=== PATIENT | female | born 1975 | race Caucasian/White ===

== ENCOUNTER 2022-08-15 07:43 | Outpatient (OUT) | payer OTHER, SELFPAY ==
--- NOTE | 2022-08-15 07:57 | ECG_ITS ---
[facility] Test Date: 2022-08-15 Pat Name: Anabel Garner Department: Room: - Gender: Female Panel Monitor: : 1975 Requested By: CHEYENNE WALDROP Order Number: [id number] Reading MD: EL MORALES Measurements Intervals [place] Rate: 64 P: 40 NC: 165 QRS: 16 QRSD: 87 T: 21 QT: 399 QTc: 412 Interpretive Statements SINUS RHYTHM Non-Specific T wave inversion in III LOW QRS VOLTAGE IN PRECORDIAL LEADS [QRS DEFLECTION < 1.0 mV IN CHEST LEADS] No previous ECG available for comparison Electronically Signed On 08-16-2022 6:35:29 EDT by EL MORALES
[2022-08-15 08:54] LABS: Basophils Percent Auto 0.7 % (0.2-2.0); Eosinophils Absolute Auto 0.3 10^3/uL (0.0-0.7); Eosinophils Percent Auto 4.9 % (0.9-7.0); Hematocrit 37.7 % (36.0-48.0); Hemoglobin 12.6 g/dL (12.0-16.0); Immature Granulocytes Abs Auto 0.02 10^3/uL (0.00-0.03); Immature Granulocytes Pct Auto 0.4 % (0.0-0.5); Lymphocytes Absolute Auto 1.8 10^3/uL (1.2-3.8); Lymphocytes Percent Auto 31.1 % (20.5-60.0); Mean Corpuscular HGB Conc 33.4 g/dL (29.9-35.2); Mean Corpuscular Hemoglobin 29.9 pg (26.7-34.0); Mean Corpuscular Volume 89.5 fL (81.0-99.0); Mean Platelet Volume 8.5 fL (9.5-13.5); Monocytes Absolute Auto 0.4 10^3/uL (0.3-0.8); Monocytes Percent Auto 7.6 % (1.7-12.0); Neutrophils Absolute Auto 3.1 10^3/uL (1.4-6.5); Neutrophils Percent Auto 55.3 % (43.0-75.0); Platelet Count 258 10^3/uL (150-450); Red Blood Count 4.21 10^6/uL (4.20-5.40); Red Cell Distribution Width 12.7 % (11.0-15.0); White Blood Count 5.7 10^3/uL (4.0-11.0)
--- NOTE | 2022-08-15 08:56 | PM.PRESUREVA ---
History of Present Illness History of Present Illness Chief complaint: Left kidney stone Narrative: Patient presents for preadmission testing. Please see HPI from Dr. Zambrano dated 07/25/2022. Review of Systems ROS Narrative Please see ROS from Dr. Zambrano dated 07/25/2022. [facility] Medical History (Updated 08/15/22 @ 08:36 by Stephanie Doyle NP) (02/2022) Surgical History (Updated 08/15/22 @ 08:36 by Stephanie Doyle NP) Family History (Updated 08/15/22 @ 08:36 by Stephanie Doyle NP) Other Family history of heart disease Family history of hypertension Family history of myocardial infarction Family history of stroke Social History (Updated 08/15/22 @ 08:29 by Stephanie Doyle NP) Within the past year, how often did you have a drink containing alcohol: monthly or less Smoking status: Former smoker Non-prescribed substance use: denies use Highest level of school completed/degree received: high school graduate Meds Home Medications and Allergies Home Medications Medication Instructions Recorded Confirmed Type citalopram 20 mg tablet 20 mg PO QDAY 08/15/22 08/15/22 History fluticasone propionate 50 2 spray intranasal QDAY PRN 08/15/22 08/15/22 History mcg/actuation nasal allergy symptoms spray,suspension omeprazole 40 mg capsule,delayed 40 mg PO QDAY 08/15/22 08/15/22 History release Allergies Allergy/AdvReac Type Severity Reaction Status Date / Time carbamazepine Allergy Unknown Verified 08/15/22 08:26 cephalexin [From Keflex] Allergy Hives Verified 08/15/22 08:26 ketorolac Allergy Hives Verified 08/15/22 08:26 metoclopramide Allergy Hives Verified 08/15/22 08:26 Exam Narrative Exam Narrative: Constitutional: Awake, alert, comfortable, well-appearing, nontoxic, interactive, vital signs as charted Head: Normocephalic, atraumatic Neck: Supple, normal appearance, normal range of motion, no meningeal signs, no lymphadenopathy Respiratory: No respiratory distress, breath sounds clear Cardiovascular: Regular rate and rhythm, strong and regular heart tones Abdomen: Nontender, normal bowel sounds, soft, no CVA tenderness Musculoskeletal: Normal gait, no swelling or edema Skin: No rashes or induration, no lesions, only visible skin inspected Neuro: No neurological deficits, normal sensation Psychiatric: Oriented ?3, normal affect Assessment and Plan Assessment and Plan (1) Kidney stones: Plan Left ESWL scheduled with Dr. Zambrano 08/23/2022.
[2022-08-15 09:12] LABS: INR 0.97; Partial Thromboplastin Time 27.9 sec (22.3-36.2); Prothrombin Time 10.3 sec (9.0-11.6)
[2022-08-15 09:32] LABS: Anion Gap 8.6; Calcium 9.2 mg/dL (8.5-10.1); Carbon Dioxide 31.1 mmol/L (21.0-32.0); Chloride 105 mmol/L (98-107); Estimated GFR (African America >60 (>=60); Estimated GFR (Non-African Ame >60 (>=60); Glucose 75 mg/dL (74-106); Potassium 3.7 mmol/L (3.5-5.1); Sodium 141 mmol/L (136-145)
== END 2022-08-15 07:44 ==
LOC: PST 07:48
PROVIDERS: Urology
DX: Z01.812 Encounter for preprocedural laboratory examination (principal); Z01.810 Encounter for preprocedural cardiovascular examination; Z01.818 Encounter for other preprocedural examination; N20.0 Calculus of kidney; K21.9 Gastro-esophageal reflux disease without esophagitis; M19.90 Unspecified osteoarthritis, unspecified site; F32.A Depression, unspecified; F41.9 Anxiety disorder, unspecified; I10 Essential (primary) hypertension; I48.91 Unspecified atrial fibrillation
CPT/HCPCS: 36415; 80048; 85025; 85610; 85730; 93005; G0463

== ENCOUNTER 2022-09-10 15:00 | Outpatient (OUT) | payer OTHER, SELFPAY | END 2022-09-10 15:01 | disposition home or self-care (01) | LOC: PST 09-20 18:23 | PROVIDERS: Visit Provider Urology | DX: Z01.818 Encounter for other preprocedural examination (principal) ==

== ENCOUNTER 2022-09-13 06:09 | Day surgery (SDC) | payer OTHER, SELFPAY ==
[2022-08-15 08:29] VITALS: BP 116/76; PULSE 64; RESP 16; TEMP 36.4; O2SAT 98
[2022-09-13] VITALS (9 sets, daily range): BP systolic 90–141; BP diastolic 68–92; PULSE 58–76; RESP 12–19; TEMP 36.1–36.4; O2SAT 93–98
--- NOTE | 2022-09-13 06:58 | XR_ITS ---
The [address] [address] Patient Name: LORA SANTANA MRN: [id number] date: 1975 Sex: F Assigned Patient Location: [facility] Current Patient Location: Accession/Order Number: [id number] Exam Date: 09/13/2022 06:54 Report Date: 09/13/2022 11:08 At the request of: CHEYENNE WALDROP Procedure: XR abdomen 1V EXAMINATION: XR abdomen 1V HISTORY: kidney stone COMPARISON: No relevant comparison available. FINDINGS: KIDNEY/URETER - RIGHT: Multiple small stones projecting over kidney. Calcifications projecting over region of mid ureter. KIDNEY/URETER - LEFT: 3 large calcifications projecting over kidney, largest is 9 mm. Small calcification overlying region of mid ureter. PELVIS: Numerous pelvic calcifications; a distal ureteral stones versus phleboliths. BOWEL: No abnormal dilation or deviation. BONES: No acute abnormality. OTHER: Negative. No abnormal gaseous collections. XR/XR abdomen 1V IMPRESSION: 1. Bilateral nephrolithiasis. 2. Mid and distal ureteral stones cannot be excluded on today's study. No recent comparison studies. Electronically authenticated by: LIDIA CLARK Date: 09/13/2022 11:08
[2022-09-13] MEDS: LACTATED RINGER'S SOLUTION 1,000 ML 50 ML IV (07:22)
[2022-09-13] MEDS: CIPROFLOXACIN IN 5 % DEXTROSE 400 MG/200 ML PIGGYBACK 200 MG IV (07:23)
--- NOTE | 2022-09-13 08:01 | PM.URSON ---
Urology Surgery Operative Note Operative Note Procedure Date: 09/13/22 Time Out Performed: yes Pre-op Diagnosis: left nephrolithiasis Post-op Diagnosis: same Procedures performed: #1. Left ESWL. Anesthesia: other (Gen. via LMA) Primary Surgeon: Kalin Zambrano Complications: non- Estimated blood loss (mL): 0 Findings: to nonobstructing left renal calculi. One is 8 mm and the 2nd one is 11 mm Specimens: non- Drains: non- Indications for Procedures: this lady has left nonobstructing nephrolithiasis. She now presents for left ESWL. She has signed an informed consent for this procedure after all the risks were explained to her in great detail. Some of these risks include bleeding, perinephric hematoma, infection and anesthesia to name a few. Detailed description of Procedure: patient was brought to the operating room and placed on the [employer] electromagnetic lithotripsy trreatment table in the supine position. SCDs were placed on her lower extremities and turned on and functioning during the entire case. Timeout was done by all parties in the room. We all agreed upon the patient's identification and the planned procedures for this patient. Gen. anesthesia was then administered via LMA. We then brought the treatment head to her left flank. While using fluoroscopy we could easily identify her 2 stones. We lined up the more cephalad stone in the crosshairs and began applying shocks at power level II.0 and increased to maximum of power level III.0. Inttermittent fluoroscopy showed that we had excellent fragmentation. We applied 1500 shocks to this 8 mm stone. We then lined up the lower pole stone in the crosshairs. The stone was about 11 mm. Intermittent fluoroscopy showed excellent fragmentation also. After applying a total of 3000 shocks to the left renal unit the procedure was terminated. She was then [facility] bed and wheeled to PACU in stable condition. She'll be discharged to home with a strainer.
--- NOTE | 2022-09-13 09:23 | PC.NURSE ---
PATIENT VOIDED 200ML, STRAINED, NOTHING OBTAINED
== END 2022-09-13 09:30 | disposition home or self-care (01) ==
PROVIDERS: Visit Provider Urology
PROC: (CPT 00873; principal; 2022-09-13 07:30)
DX: N20.0 Calculus of kidney (principal); K21.9 Gastro-esophageal reflux disease without esophagitis; M19.90 Unspecified osteoarthritis, unspecified site; F32.A Depression, unspecified; F41.9 Anxiety disorder, unspecified; I10 Essential (primary) hypertension; I48.91 Unspecified atrial fibrillation; Z87.891 Personal history of nicotine dependence
CPT/HCPCS: 00873; 50590; 36415; 74018; J2704

== ENCOUNTER 2022-09-25 14:14 | Outpatient (REF) | payer OTHER, SELFPAY ==
[2022-10-01 13:07] LABS: Calcium Oxalate Dihydrate 20 % (.); Calcium Oxalate Monohydrate 80 % (.)
== END 2022-09-25 14:15 | disposition home or self-care (01) ==
LOC: LAB 14:14
PROVIDERS: Visit Provider Urology
DX: N20.0 Calculus of kidney (principal)
CPT/HCPCS: 82365